=== PATIENT | female | born 1970 | race Caucasian/White ===

== ENCOUNTER → 2016-11-01 | Outpatient (REF) | payer BC ==
[~2016-11-01] MED LIST: /DULO30CA; AMBI10TA; CALC500T49; THERGRAN; VITA-113; VITA100027; XANA1TAB2
[2016-11-01 11:54] LABS: CONTROL LINE HCG INT CTR LINE PRESENT
[2016-11-01 11:55] LABS: BASO % 0.5 % (0.0-1.0); EOS # 0.1 K/mm3 (0.0-0.50); EOS % 2.7 % (0.0-3.0); LARGE UNSTAINED CELL # 0.1 K/mm3 (0.0-0.4); LARGE UNSTAINED CELL % 1.8 % (0.0-4.0); LYMPH # 1.1 K/mm3 (1.5-4.5); LYMPH % 22.4 % (24.0-44.0); MEAN CORPUSCULAR HEMOGLOBIN 18.5 pg (27.0-33.0); MEAN CORPUSCULAR HGB CONC 26.3 g/dl (32.0-36.5); MEAN CORPUSCULAR VOLUME 70.4 fl (80.0-96.0); MONO # 0.3 K/mm3 (0.0-0.8); MONO % 6.7 % (0.0-5.0); NEUTROPHILS # 3.1 K/mm3 (1.8-7.7); NEUTROPHILS % 65.9 % (36.0-66.0); PLATELET COUNT, AUTOMATED 460 k/mm3 (150-450); RED CELL DISTRIBUTION WIDTH 17.4 % (11.5-14.5); WHITE BLOOD COUNT 4.7 K/mm3 (4.0-10.0)
[2016-11-01 11:57] LABS: ANION GAP 8 MEQ/L (8-16); BLOOD UREA NITROGEN 13 MG/DL (7-18); CALCIUM LEVEL 8.5 MG/DL (8.5-10.1); CARBON DIOXIDE LEVEL 24 MEQ/L (21-32); CHLORIDE LEVEL 105 MEQ/L (98-107); CREATININE FOR GFR 0.77 MG/DL (0.55-1.02); GLOMERULAR FILTRATION RATE > 60.0 (>58); GLUCOSE, FASTING 89 MG/DL (70-105); SODIUM LEVEL 137 MEQ/L (136-145)
[2016-11-01 12:03] LABS: ADD MORPHOLOGY? YES
[2016-11-01 13:12] LABS: ANISOCYTOSIS 2+; HYPOCHROMASIA 3+; MICROCYTOSIS 2+; POIKILOCYTOSIS 1+
== END ==
LOC: M LABDRAWC 11:16
PROVIDERS: ATTEND Surgery
DX: T50.5X5A Adverse effect of appetite depressants, initial encounter (principal)

== ENCOUNTER → 2016-12-14 | Outpatient (REF) | payer BC ==
[2016-12-14 17:59] LABS: ANION GAP 9 MEQ/L (8-16); BLOOD UREA NITROGEN 9 MG/DL (7-18); CALCIUM LEVEL 8.8 MG/DL (8.5-10.1); CARBON DIOXIDE LEVEL 26 MEQ/L (21-32); CHLORIDE LEVEL 105 MEQ/L (98-107); CREATININE FOR GFR 0.82 MG/DL (0.55-1.02); GLOMERULAR FILTRATION RATE > 60.0 (>58); GLUCOSE, FASTING 88 MG/DL (70-105); POTASSIUM SERUM 3.7 MEQ/L (3.5-5.1); SODIUM LEVEL 140 MEQ/L (136-145)
== END ==
LOC: M LABDRAWC 16:20
PROVIDERS: ATTEND Physician Assistant
DX: Z01.818 Encounter for other preprocedural examination (principal); E11.9 Type 2 diabetes mellitus without complications

== ENCOUNTER → 2017-10-17 | Outpatient (REF) | payer BC ==
[2017-10-17 12:15] LABS: TOTAL 25(OH) VITAMIN D 14.6 NG/ML (30.0-100.0)
[2017-10-17 12:16] LABS: VITAMIN B12 LEVEL 209 PG/ML
[2017-10-17 12:17] LABS: FOLATE 5.1 NG/ML
[2017-10-17 12:18] LABS: ALBUMIN 3.7 GM/DL (3.2-5.2)
[2017-10-17 12:18] LABS: FERRITIN 1 NG/ML (8-252)
[2017-10-20 00:07] LABS: VITAMIN B1 LEVEL WHOLE BLOOD 92.7 nmol/L (66.5-200.0)
== END ==
LOC: M LABDRAWC 11:36
DX: Z98.84 Bariatric surgery status (principal)
CPT/HCPCS: 82040

== ENCOUNTER → 2018-02-15 | Outpatient (REF) | payer BC ==
[2018-02-16 11:55] LABS: IRON (FE) 19 UG/DL (50-170); PERCENT SATURATION 4.9 % (13.2-45.0); TOTAL IRON BINDING CAPACITY 391 UG/DL (250-450)
[2018-02-16 12:18] LABS: HEMATOCRIT 36.7 % (36.0-47.0); HEMOGLOBIN 10.6 g/dl (12.0-15.5); MEAN CORPUSCULAR HEMOGLOBIN 24.4 pg (27.0-33.0); MEAN CORPUSCULAR HGB CONC 28.9 g/dl (32.0-36.5); MEAN CORPUSCULAR VOLUME 84.6 fl (80.0-96.0); PLATELET COUNT, AUTOMATED 486 10^3/uL (150-450); RED BLOOD COUNT 4.34 10^6/uL (4.00-5.40); RED CELL DISTRIBUTION WIDTH 15.9 % (11.5-14.5); WHITE BLOOD COUNT 6.4 10^3/uL (4.0-10.0)
== END ==
LOC: M SFHCCLAY 15:58
DX: D50.8 Other iron deficiency anemias (principal)
CPT/HCPCS: 83550

== ENCOUNTER → 2019-06-06 | Outpatient (REF) | payer BC ==
[~2019-06-06] MED LIST changes: -/DULO30CA; +CYMB1CAP5
[2019-06-06 19:02] LABS: HEMATOCRIT 42.4 % (36.0-47.0); HEMOGLOBIN 14.2 g/dl (12.0-15.5); MEAN CORPUSCULAR HEMOGLOBIN 32.6 pg (27.0-33.0); MEAN CORPUSCULAR HGB CONC 33.5 g/dl (32.0-36.5); MEAN CORPUSCULAR VOLUME 97.2 fl (80.0-96.0); PLATELET COUNT, AUTOMATED 259 10^3/uL (150-450); RED BLOOD COUNT 4.36 10^6/uL (4.00-5.40); WHITE BLOOD COUNT 5.5 10^3/uL (4.0-10.0)
== END ==
LOC: M SFHCCLAY 10:30
PROVIDERS: ATTEND Family Medicine
DX: Z98.84 Bariatric surgery status (principal); K27.9 Peptic ulcer, site unspecified, unspecified as acute or chronic, without hemorrhage or perforation

== ENCOUNTER → 2019-06-08 | Outpatient (REF) | payer BC | LOC: M SFHCCLAY 11:18 | PROVIDERS: ATTEND Family Medicine | DX: Z98.84 Bariatric surgery status (principal) ==

== ENCOUNTER → 2019-09-05 | Outpatient (REF) | payer BC ==
[2019-09-05 12:36] LABS: ALBUMIN 3.9 GM/DL (3.2-5.2); ALT/SGPT 59 U/L (12-78); BILIRUBIN,DIRECT 0.1 MG/DL (0.0-0.2); BILIRUBIN,TOTAL 0.5 MG/DL (0.2-1.0); BLOOD UREA NITROGEN 17 MG/DL (7-18); CALCIUM LEVEL 9.1 MG/DL (8.5-10.1); CARBON DIOXIDE LEVEL 26 MEQ/L (21-32); CHLORIDE LEVEL 108 MEQ/L (98-107); CREATININE FOR GFR 0.94 MG/DL (0.55-1.30); FERRITIN 6 NG/ML (8-252); FOLATE > 24.0 NG/ML (>5.4); GLOMERULAR FILTRATION RATE > 60.0 (>58); GLUCOSE, FASTING 98 MG/DL (70-100); POTASSIUM SERUM 4.3 MEQ/L (3.5-5.1); SODIUM LEVEL 140 MEQ/L (136-145); TOTAL 25(OH) VITAMIN D 93.3 NG/ML (30.0-100.0); TOTAL PROTEIN 6.9 GM/DL (6.4-8.2); TRIGLYCERIDES LEVEL 115 MG/DL (<150); VITAMIN B12 LEVEL > 2000 PG/ML (247-911)
== END ==
LOC: M LABDRAWC 11:14 → M LAB REF 11:14
PROVIDERS: ATTEND Surgery
DX: Z98.84 Bariatric surgery status (principal)

== ENCOUNTER → 2019-09-19 | Outpatient (REF) | payer BC | LOC: M LAB REF 15:16 | PROVIDERS: ATTEND Orthopaedic Surgery Hand Surgery | DX: L72.9 Follicular cyst of the skin and subcutaneous tissue, unspecified (principal) ==

== ENCOUNTER → 2019-12-19 | Outpatient (CLI) | payer BC ==
--- NOTE | 2019-12-19 15:08 | REP ---
Clinical: Trauma. Technique: Frontal view of the chest with four views of the right hemithorax. Findings: Frontal view of the chest demonstrates no acute cardiopulmonary process. A very subtle nondisplaced fracture involving the anterolateral aspect of the right eighth rib cannot be excluded. Remainder examination appears normal. Impression: Cannot definitively exclude nondisplaced right eighth rib fracture. Electronically Signed by Marshall Quispe MD 12/19/2019 03:00 P
== END ==
LOC: M CLY 10:24
PROVIDERS: ATTEND Family Medicine
DX: R07.81 Pleurodynia (principal)

== ENCOUNTER → 2020-09-09 | Outpatient (CLI) | payer BC ==
--- NOTE | 2020-09-09 14:11 | REP ---
INDICATION: LOW BACK PAIN WITH SCIATICA. Acute right-sided low back pain with right-sided sciatica. COMPARISON: None. TECHNIQUE: Sagittal and axial T1 and T2-weighted scans are acquired in the usual fashion with and without fat saturation. Sequences include spin echo, turbo spin-echo, and STIR imaging sequences. FINDINGS: Lumbar vertebral body heights are preserved. Alignment is normal. There is no evidence of spondylolysis or spondylolisthesis. Pedicles and posterior elements are intact. No extra vertebral abnormality is observed. Tip of the conus medullaris is normal in position and appearance at L1. There is central disc bulging at the T11-12 disc. This disc shows narrowing in height and anterior osteophytes are seen formed at this level. The T12-L1 disc level shows minimal central disc bulging. At L1-L2, axial and sagittal images show no significant abnormality. At L2-3, there is mild degenerative disc narrowing. Minimal diffuse disc bulging is present. No foraminal narrowing or spinal stenosis is seen. At L3-4, there is a broad-based left lateral disc bulge with a annulus tear. This produces left neural foraminal narrowing. Mild diffuse disc bulging is present. There is mild ligamentum flavum and facet hypertrophy at L3-4. At L4-L5, there is a small central disc bulge. This effaces the ventral subarachnoid space. No spinal stenosis or foraminal narrowing is seen. At L5-S1, there is a right posterior disc extrusion with cranial migration of the disc extrusion along the posterior cortex of L5 nearly to its upper margin. There is right ventral lateral thecal sac compression and the right S1 root is compressed and displaced dorsally. The disc protrusion measures 12 x 7 x 16 mm in right to left by anteroposterior by craniocaudal dimension respectively. The there is minimal facet hypertrophy at L5-S1. Exam is otherwise unremarkable. IMPRESSION: 1. There is a large right posterior L5-S1 disc protrusion with cranial migration and extension. Right S1 nerve root compression and thecal sac compression. 2. There is a left lateral disc bulge with and annulus tear at L3-4 producing left-sided neural foraminal narrowing at this level. <Electronically signed by Mathieu Francisco > 09/09/20 [id number]
== END ==
LOC: M RAD 12:44
PROVIDERS: ATTEND Family Medicine
DX: M51.27 Other intervertebral disc displacement, lumbosacral region (principal); M51.26 Other intervertebral disc displacement, lumbar region; M54.41 Lumbago with sciatica, right side

== ENCOUNTER → 2020-09-18 | Outpatient (REF) | payer BC ==
[2020-09-18 16:16] LABS: APPEARANCE, URINE CLEAR (CLEAR); BACTERIA, URINE AUTO 1+ (NEGATIVE); BILIRUBIN, URINE AUTO NEGATIVE (NEGATIVE); BLOOD, URINE BLOOD NEGATIVE (NEGATIVE); COLOR, URINE STRAW (YELLOW); GLUCOSE, URINE (UA) AUTO NEGATIVE (NEGATIVE); KETONE, URINE AUTO NEGATIVE (NEGATIVE); LEUKOCYTE ESTERASE, URINE AUTO NEGATIVE (NEGATIVE); MUCUS, URINE SMALL (NEGATIVE); NITRITE, URINE AUTO NEGATIVE (NEGATIVE); PROTEIN, URINE AUTO NEGATIVE (NEGATIVE); RBC, URINE AUTO 0 /HPF (0-3); SPECIFIC GRAVITY URINE AUTO 1.004 (1.002-1.035); SQUAMOUS EPITHELIAL CELL UR AU 3 /HPF (0-6); UROBILINOGEN, URINE AUTO 0.2 mg/dL (0.0-2.0); WBC, URINE AUTO 0 /HPF (0-3)
[2020-09-18 16:19] LABS: BASO # 0.1 10^3/uL (0.0-0.2); BASO % 0.7 % (0.0-1.0); EOS # 0.2 10^3/uL (0.0-0.5); EOS % 2.8 % (0.0-3.0); HEMATOCRIT 42.1 % (36.0-47.0); HEMOGLOBIN 13.4 g/dl (12.0-15.5); LYMPH # 1.5 10^3/uL (1.5-5.0); LYMPH % 21.3 % (24.0-44.0); MEAN CORPUSCULAR HEMOGLOBIN 30.7 pg (27.0-33.0); MEAN CORPUSCULAR HGB CONC 31.8 g/dl (32.0-36.5); MEAN CORPUSCULAR VOLUME 96.3 fl (80.0-96.0); MONO # 0.5 10^3/uL (0.0-0.8); MONO % 7.5 % (2.0-8.0); NEUTROPHILS # 4.9 10^3/uL (1.5-8.5); NEUTROPHILS % 67.3 % (36.0-66.0); PLATELET COUNT, AUTOMATED 283 10^3/uL (150-450); RED BLOOD COUNT 4.37 10^6/uL (4.00-5.40); WHITE BLOOD COUNT 7.2 10^3/uL (4.0-10.0)
[2020-09-18 16:26] LABS: INR 0.94; PROTHROMBIN TIME 12.8 SECONDS (12.5-14.3)
[2020-09-18 16:27] LABS: PARTIAL THROMBOPLASTIN TIME 32.1 SECONDS (24.2-38.5)
[2020-09-18 16:36] LABS: ALBUMIN 4.1 GM/DL (3.2-5.2); ALT/SGPT 32 U/L (12-78); BILIRUBIN,TOTAL 0.2 MG/DL (0.2-1.0); BLOOD UREA NITROGEN 11 MG/DL (7-18); CARBON DIOXIDE LEVEL 28 MEQ/L (21-32); CHLORIDE LEVEL 109 MEQ/L (98-107); CREATININE FOR GFR 0.77 MG/DL (0.55-1.30); GLOMERULAR FILTRATION RATE > 60.0 (>58); GLUCOSE, FASTING 96 MG/DL (70-100); SODIUM LEVEL 141 MEQ/L (136-145); TOTAL PROTEIN 6.9 GM/DL (6.4-8.2)
[2020-09-19 07:22] LABS: FREE T4 0.89 NG/DL (0.76-1.46)
== END ==
LOC: M SFHCCLAY 13:21
PROVIDERS: ATTEND Family Medicine
DX: M51.26 Other intervertebral disc displacement, lumbar region (principal); Z01.818 Encounter for other preprocedural examination

== ENCOUNTER 2020-10-03 12:05 | Emergency (ER) | payer BC ==
[~2020-10-03] VITALS: Ht 154.9 cm; Wt 65.2 kg
[2020-10-03] MEDS ORDERED: ARIP1TAB6 (12:15)
[2020-10-03] MEDS ORDERED: ESCITALOPRAM (12:15)
[2020-10-03] MEDS ORDERED: BUPR300T92 (12:15)
[2020-10-03] MEDS ORDERED: OXYC1TAB15 (12:15)
--- NOTE | 2020-10-03 13:23 | REP ---
INDICATION: pain, swelling. COMPARISON: None. TECHNIQUE: Duplex deep vein ultrasound of the right lower extremity. FINDINGS: The deep veins demonstrate normal compression, normal Doppler color flow and normal Doppler waveforms with respiration augmentation at multiple levels from the popliteal vein to the common femoral vein. IMPRESSION: There is no evidence of deep vein thrombus in the right lower extremity. The normal size lymph node is incidentally noted in the right inguinal area. <Electronically signed by Griffin Chin > 10/03/20 [id number]
[2020-10-03 14:22] VITALS: BP 133/75
== END 2020-10-03 14:24 | disposition home or self-care (01) ==
LOC: M ED 12:05
DX: I83.811 Varicose veins of right lower extremity with pain (principal); R22.41 Localized swelling, mass and lump, right lower limb; M43.20 Fusion of spine, site unspecified; Z79.891 Long term (current) use of opiate analgesic; Z79.899 Other long term (current) drug therapy

== ENCOUNTER → 2021-04-16 | Outpatient (REF) | payer BC ==
[~2021-04-16] MED LIST changes: +ARIP1TAB6; +BUPR300T92; +ESCITALOPRAM; +OXYC7.5T3
[2021-04-16 11:50] LABS: HEMOGLOBIN A1c 5.3 %
[2021-04-16 11:54] LABS: ALBUMIN 3.6 GM/DL (3.2-5.2); ALT/SGPT 23 U/L (12-78); BILIRUBIN,TOTAL 0.3 MG/DL (0.2-1.0); BLOOD UREA NITROGEN 14 MG/DL (7-18); CARBON DIOXIDE LEVEL 28 MEQ/L (21-32); CHLORIDE LEVEL 111 MEQ/L (98-107); CREATININE FOR GFR 0.97 MG/DL (0.55-1.30); FREE T4 0.87 NG/DL (0.76-1.46); GLOMERULAR FILTRATION RATE > 60.0 (>58); GLUCOSE, FASTING 89 MG/DL (70-100); POTASSIUM SERUM 4.2 MEQ/L (3.5-5.1); SODIUM LEVEL 140 MEQ/L (136-145); TOTAL PROTEIN 6.6 GM/DL (6.4-8.2)
[2021-04-16 11:55] LABS: VITAMIN B12 LEVEL 398 PG/ML (247-911)
== END ==
LOC: M SFHCCLAY 08:00
PROVIDERS: ATTEND Family Medicine
DX: Z23 Encounter for immunization (principal); F33.0 Major depressive disorder, recurrent, mild; F41.9 Anxiety disorder, unspecified; Z98.84 Bariatric surgery status; D50.9 Iron deficiency anemia, unspecified

== ENCOUNTER → 2021-12-26 | Outpatient (CLI) | payer BC ==
[~2021-12-26] MED LIST changes: +PROHANCE 279.3MG/ML 15ML VIAL As Ordered ONE
== END ==
LOC: M RAD 08:31
PROVIDERS: ATTEND Nurse Practitioner Family
DX: M96.1 Postlaminectomy syndrome, not elsewhere classified (principal)

== ENCOUNTER → 2022-02-17 | Outpatient (REF) | payer BC ==
[~2022-02-17] MED LIST changes: -PROHANCE 279.3MG/ML 15ML VIAL As Ordered ONE
[2022-02-17 12:04] LABS: HEMATOCRIT 39.3 % (36.0-47.0); HEMOGLOBIN 12.1 g/dl (12.0-15.5); MEAN CORPUSCULAR HEMOGLOBIN 27.9 pg (27.0-33.0); MEAN CORPUSCULAR HGB CONC 30.8 g/dl (32.0-36.5); MEAN CORPUSCULAR VOLUME 90.8 fl (80.0-96.0); PLATELET COUNT, AUTOMATED 249 10^3/uL (150-450); RED BLOOD COUNT 4.33 10^6/uL (4.00-5.40); WHITE BLOOD COUNT 3.6 10^3/uL (4.0-10.0)
[2022-02-17 13:12] LABS: ALBUMIN 3.8 GM/DL (3.2-5.2); ALT/SGPT 21 U/L (12-78); BILIRUBIN,TOTAL 0.3 MG/DL (0.2-1.0); BLOOD UREA NITROGEN 13 MG/DL (7-18); CALCIUM LEVEL 9.2 MG/DL (8.5-10.1); CARBON DIOXIDE LEVEL 24 MEQ/L (21-32); CHLORIDE LEVEL 109 MEQ/L (98-107); CREATININE FOR GFR 0.91 MG/DL (0.55-1.30); FREE T4 0.87 NG/DL (0.76-1.46); GLOMERULAR FILTRATION RATE > 60.0 (>58); GLUCOSE, FASTING 108 MG/DL (70-100); IRON (FE) 44 UG/DL (50-170); MAGNESIUM LEVEL 2.1 MG/DL (1.8-2.4); PERCENT SATURATION 11.3 % (13.2-45.0); POTASSIUM SERUM 3.8 MEQ/L (3.5-5.1); SODIUM LEVEL 138 MEQ/L (136-145); TOTAL IRON BINDING CAPACITY 388 UG/DL (250-450); TOTAL PROTEIN 6.6 GM/DL (6.4-8.2)
[2022-02-17 14:10] LABS: PTH INTACT 30.8 PG/ML (18.5-88.0); VITAMIN B12 LEVEL 270 PG/ML (247-911)
== END ==
LOC: M SFHCCLAY 08:14
PROVIDERS: ATTEND Family Medicine
DX: F33.0 Major depressive disorder, recurrent, mild (principal); Z98.84 Bariatric surgery status

== ENCOUNTER → 2022-11-03 | Outpatient (REF) | payer BC ==
[2022-11-03 18:08] LABS: HEMOGLOBIN 12.8 g/dl (12.0-15.5); MEAN CORPUSCULAR HEMOGLOBIN 27.2 pg (27.0-33.0); MEAN CORPUSCULAR HGB CONC 31.2 g/dl (32.0-36.5); PLATELET COUNT, AUTOMATED 364 10^3/uL (150-450); RED BLOOD COUNT 4.71 10^6/uL (4.00-5.40); WHITE BLOOD COUNT 6.7 10^3/uL (4.0-10.0)
[2022-11-03 18:38] LABS: VITAMIN B12 LEVEL 339 PG/ML (211-911)
[2022-11-03 18:39] LABS: ALBUMIN 4.2 G/DL (3.2-5.2); ALKALINE PHOSPHATASE 46 U/L (46-116); ALT/SGPT 16 U/L (7.0-40); AST/SGOT < 8 U/L (<34); BILIRUBIN,TOTAL 0.3 MG/DL (0.3-1.2); BLOOD UREA NITROGEN 10 MG/DL (9-23); CALCIUM LEVEL 9.6 MG/DL (8.5-10.1); CARBON DIOXIDE LEVEL 25 MMOL/L (20-31); CHLORIDE LEVEL 106 MMOL/L (98-107); CREATININE FOR GFR 0.86 MG/DL (0.55-1.30); GLOMERULAR FILTRATION RATE > 60.0 (>51); GLUCOSE, FASTING 99 MG/DL (60-100); IRON (FE) 26 UG/DL (50-170); MAGNESIUM LEVEL 1.8 MG/DL (1.8-2.4); PERCENT SATURATION 6.6 % (13.2-45.0); POTASSIUM SERUM 5.1 MMOL/L (3.5-5.1); SODIUM LEVEL 138 MMOL/L (136-145); TOTAL IRON BINDING CAPACITY 392 UG/DL (250-425); TOTAL PROTEIN 6.9 G/DL (5.7-8.2)
[2022-11-03 18:42] LABS: THYROID STIMULATING HORMONE 5.443 uIU/ML (0.55-4.78)
== END ==
LOC: M SFHCCLAY 11:21
PROVIDERS: ATTEND Family Medicine
DX: F33.1 Major depressive disorder, recurrent, moderate (principal); F41.1 Generalized anxiety disorder; Z98.84 Bariatric surgery status; E53.8 Deficiency of other specified B group vitamins

== ENCOUNTER → 2022-12-17 | Outpatient (REF) | payer BC ==
[2022-12-17 13:02] LABS: FREE T4 0.92 NG/DL (0.89-1.76); THYROID STIMULATING HORMONE 2.311 uIU/ML (0.55-4.78)
== END ==
LOC: M SFHCCLAY 08:35
PROVIDERS: ATTEND Family Medicine
DX: E03.9 Hypothyroidism, unspecified (principal)

== ENCOUNTER → 2023-01-26 | Outpatient (REF) | payer BC ==
[2023-01-27 23:11] LABS: ANA (HEP2) Positive (.); CYCLIC CITRULLINATED PEPTIDE 5 units (0-19)
== END ==
LOC: M SFHCCLAY 07:10
PROVIDERS: ATTEND Family Medicine
DX: M19.90 Unspecified osteoarthritis, unspecified site (principal); Z98.84 Bariatric surgery status

== ENCOUNTER → 2023-05-05 | Outpatient (CLI) | payer BC | LOC: M PLARAD 09:19 | PROVIDERS: ATTEND Pain Medicine Interventional Pain Medicine | DX: M47.812 Spondylosis without myelopathy or radiculopathy, cervical region (principal); M50.222 Other cervical disc displacement at C5-C6 level ==

== ENCOUNTER → 2023-05-10 | Outpatient (REF) | payer BC ==
[2023-05-10 12:16] LABS: IRON (FE) 28 UG/DL (50-170); PERCENT SATURATION 6.5 % (13.2-45.0); TOTAL IRON BINDING CAPACITY 429 UG/DL (250-425)
[2023-05-10 12:17] LABS: ALBUMIN 3.6 G/DL (3.2-5.2); ALKALINE PHOSPHATASE 46 U/L (46-116); ALT/SGPT 23 U/L (7.0-40); AST/SGOT 23 U/L (<34); BILIRUBIN,TOTAL 0.2 MG/DL (0.3-1.2); BLOOD UREA NITROGEN 13 MG/DL (9-23); CALCIUM LEVEL 9.1 MG/DL (8.5-10.1); CARBON DIOXIDE LEVEL 27 MMOL/L (20-31); CHLORIDE LEVEL 109 MMOL/L (98-107); CREATININE FOR GFR 0.82 MG/DL (0.55-1.30); GLOMERULAR FILTRATION RATE > 60.0 (>51); GLUCOSE, FASTING 100 MG/DL (60-100); POTASSIUM SERUM 4.1 MMOL/L (3.5-5.1); SODIUM LEVEL 142 MMOL/L (136-145); TOTAL PROTEIN 6.3 G/DL (5.7-8.2)
[2023-05-10 12:19] LABS: FREE T4 0.98 NG/DL (0.89-1.76); THYROID STIMULATING HORMONE 2.308 uIU/ML (0.55-4.78)
[2023-05-10 12:25] LABS: BASO % 0.7 % (0.0-1.0); EOS # 0.2 10^3/uL (0.0-0.5); EOS % 3.4 % (0.0-3.0); HEMATOCRIT 37.5 % (36.0-47.0); HEMOGLOBIN 11.4 g/dl (12.0-15.5); LYMPH # 1.7 10^3/uL (1.5-5.0); LYMPH % 37.6 % (24.0-44.0); MEAN CORPUSCULAR HEMOGLOBIN 25.2 pg (27.0-33.0); MEAN CORPUSCULAR HGB CONC 30.4 g/dl (32.0-36.5); MEAN CORPUSCULAR VOLUME 82.8 fl (80.0-96.0); MONO # 0.5 10^3/uL (0.0-0.8); MONO % 10.9 % (2.0-8.0); NEUTROPHILS # 2.1 10^3/uL (1.5-8.5); NEUTROPHILS % 46.9 % (36.0-66.0); PLATELET COUNT, AUTOMATED 304 10^3/uL (150-450); RED BLOOD COUNT 4.53 10^6/uL (4.00-5.40); WHITE BLOOD COUNT 4.4 10^3/uL (4.0-10.0)
[2023-05-10 12:45] LABS: HEMOGLOBIN A1c 5.4 % (4.0-6.0)
== END ==
LOC: M SFHCCLAY 07:27
PROVIDERS: ATTEND Family Medicine
DX: E03.9 Hypothyroidism, unspecified (principal); Z98.84 Bariatric surgery status

== ENCOUNTER → 2023-06-03 | Outpatient (REF) | payer BC ==
[2023-06-03 13:35] LABS: CHOLESTEROL RISK RATIO 2.5 (<5); HDL CHOLESTEROL 65.2 MG/DL (>40); LDL CHOLESTEROL 77.2 MG/DL (<100); NON-HDL-C 97.8 MG/DL
== END ==
LOC: M LABDRAWC 11:54
PROVIDERS: ATTEND Psychiatry & Neurology Psychiatry
DX: F33.1 Major depressive disorder, recurrent, moderate (principal); F41.1 Generalized anxiety disorder

== ENCOUNTER 2023-06-20 13:36 | Emergency (ER) | payer BC ==
[~2023-06-20] VITALS: Ht 152.4 cm; Wt 60.7 kg
[2023-06-20] MEDS ORDERED: KETOROLAC 30 MG/ML 1ML VIAL IV ONE (16:55)
[2023-06-20] MEDS ORDERED: NS 1,000 ML IV ONE (16:55)
[2023-06-20] MEDS ORDERED: ISOVUE-370 76% 100ML VIAL As Ordered ONE ×2 (17:30→17:44)
[2023-06-20 17:41] VITALS: BP 126/74; TEMP 99.1; O2SAT 99
[2023-06-20 17:50] LABS: BASO % 0.8 % (0.0-1.0); EOS # 0.2 10^3/uL (0.0-0.5); EOS % 4.9 % (0.0-3.0); HEMOGLOBIN 11.1 g/dl (12.0-15.5); LYMPH # 2.3 10^3/uL (1.5-5.0); LYMPH % 49.4 % (24.0-44.0); MEAN CORPUSCULAR HEMOGLOBIN 24.2 pg (27.0-33.0); MEAN CORPUSCULAR VOLUME 80.6 fl (80.0-96.0); MONO # 0.4 10^3/uL (0.0-0.8); MONO % 9.1 % (2.0-8.0); NEUTROPHILS # 1.7 10^3/uL (1.5-8.5); NEUTROPHILS % 35.4 % (36.0-66.0); PLATELET COUNT, AUTOMATED 309 10^3/uL (150-450); RED BLOOD COUNT 4.59 10^6/uL (4.00-5.40); WHITE BLOOD COUNT 4.7 10^3/uL (4.0-10.0)
[2023-06-20] MEDS ORDERED: NEUR300C PO (18:55)
== END 2023-06-20 19:04 | disposition home or self-care (01) ==
LOC: M ED 13:36
DX: G57.92 Unspecified mononeuropathy of left lower limb (principal); M50.30 Other cervical disc degeneration, unspecified cervical region; F41.9 Anxiety disorder, unspecified; F32.A Depression, unspecified; Z98.84 Bariatric surgery status; F17.200 Nicotine dependence, unspecified, uncomplicated; Z79.899 Other long term (current) drug therapy
CPT/HCPCS: 70450; 71275; 80047; 85025; 96361; 96374; 99284; J1885; Q9967

== ENCOUNTER 2023-08-22 06:42 | Day surgery (SDC) | payer BC ==
[~2023-08-22] VITALS: Ht 152.4 cm; Wt 62.1 kg
[~2023-08-22 06:42] MED LIST changes: -ARIP1TAB6; +ARIP1TAB6 PO; +B-12100010 PO; +BUPR-69 PO; +CALCTAB89 PO; +LEVO25TA5 PO; +NEUR300C PO; +THERTAB52 PO; +TOPI-21 PO; +VENL75CA47 PO
[2023-08-22] MEDS ORDERED: SIMETHICONE 40MG/0.6ML DROPS 30ML As Ordered ONE (06:43)
[2023-08-22] MEDS: NS 1,000 ML IV ONE (07:11)
[2023-08-22 08:41] VITALS: BP 134/82; O2SAT 97
== END 2023-08-22 08:40 | disposition home or self-care (01) ==
LOC: M OPP 06:42
PROVIDERS: ATTEND Internal Medicine Gastroenterology
DX: Z12.11 Encounter for screening for malignant neoplasm of colon (principal); D12.6 Benign neoplasm of colon, unspecified; K64.8 Other hemorrhoids; K64.4 Residual hemorrhoidal skin tags; K57.30 Diverticulosis of large intestine without perforation or abscess without bleeding; D50.9 Iron deficiency anemia, unspecified; Z98.84 Bariatric surgery status; Z79.890 Hormone replacement therapy; Z79.899 Other long term (current) drug therapy

== ENCOUNTER → 2023-12-07 | Outpatient (REF) | payer BC ==
[~2023-12-07] MED LIST changes: +BUPR-597; -BUPR300T92
[2023-12-07 13:43] LABS: HEMATOCRIT 35.9 % (36.0-47.0); HEMOGLOBIN 10.8 g/dl (12.0-15.5); MEAN CORPUSCULAR HEMOGLOBIN 25.2 pg (27.0-33.0); MEAN CORPUSCULAR HGB CONC 30.1 g/dl (32.0-36.5); MEAN CORPUSCULAR VOLUME 83.9 fl (80.0-96.0); PLATELET COUNT, AUTOMATED 327 10^3/uL (150-450); RED BLOOD COUNT 4.28 10^6/uL (4.00-5.40); WHITE BLOOD COUNT 4.2 10^3/uL (4.0-10.0)
[2023-12-07 14:11] LABS: IRON (FE) 30 UG/DL (50-170)
[2023-12-07 14:13] LABS: FREE T4 0.77 NG/DL (0.89-1.76); PERCENT SATURATION 6.7 % (13.2-45.0); THYROID STIMULATING HORMONE 3.267 uIU/ML (0.55-4.78); TOTAL IRON BINDING CAPACITY 449 UG/DL (250-425)
[2023-12-07 14:14] LABS: VITAMIN B12 LEVEL 363 PG/ML (211-911)
[2023-12-07 14:15] LABS: ALBUMIN 3.5 G/DL (3.2-5.2); ALKALINE PHOSPHATASE 65 U/L (46-116); ALT/SGPT 19 U/L (7.0-40); AST/SGOT 22 U/L (<34); BILIRUBIN,TOTAL 0.3 MG/DL (0.3-1.2); BLOOD UREA NITROGEN 15 MG/DL (9-23); CALCIUM LEVEL 8.9 MG/DL (8.5-10.1); CARBON DIOXIDE LEVEL 29 MMOL/L (20-31); CHLORIDE LEVEL 107 MMOL/L (98-107); CHOLESTEROL LEVEL 151 MG/DL (<200); CHOLESTEROL RISK RATIO 2.14 (<5); GLOMERULAR FILTRATION RATE > 60.0 (>51); GLUCOSE, FASTING 95 MG/DL (60-100); HDL CHOLESTEROL 70.3 MG/DL (>40); LDL CHOLESTEROL 63.9 MG/DL (<100); NON-HDL-C 80.7 MG/DL; POTASSIUM SERUM 4.7 MMOL/L (3.5-5.1); PTH INTACT 45.1 PG/ML (18.5-88.0); SODIUM LEVEL 140 MMOL/L (136-145); TOTAL PROTEIN 6.3 G/DL (5.7-8.2); TRIGLYCERIDES LEVEL 84 MG/DL (<150)
== END ==
LOC: M SFHCCLAY 07:29
PROVIDERS: ATTEND Family Medicine
DX: F33.1 Major depressive disorder, recurrent, moderate (principal); E03.9 Hypothyroidism, unspecified; D50.9 Iron deficiency anemia, unspecified; E53.8 Deficiency of other specified B group vitamins; Z98.84 Bariatric surgery status

== ENCOUNTER → 2024-05-08 | Outpatient (REF) | payer BC ==
[2024-05-08 11:42] LABS: HEMATOCRIT 37.9 % (36.0-47.0); HEMOGLOBIN 11.4 g/dl (12.0-15.5); MEAN CORPUSCULAR HEMOGLOBIN 25.3 pg (27.0-33.0); MEAN CORPUSCULAR HGB CONC 30.1 g/dl (32.0-36.5); MEAN CORPUSCULAR VOLUME 84.2 fl (80.0-96.0); PLATELET COUNT, AUTOMATED 329 10^3/uL (150-450); WHITE BLOOD COUNT 5.1 10^3/uL (4.0-10.0)
[2024-05-08 12:17] LABS: FREE T4 1.23 NG/DL (0.89-1.76); PERCENT SATURATION 4.2 % (13.2-45.0)
[2024-05-08 12:18] LABS: THYROID STIMULATING HORMONE 2.628 uIU/ML (0.55-4.78)
[2024-05-08 12:20] LABS: FREE T3 3.2 PG/ML (2.3-4.2)
== END ==
LOC: M SFHCCLAY 08:58
PROVIDERS: ATTEND Family Medicine
DX: D50.9 Iron deficiency anemia, unspecified (principal); E03.9 Hypothyroidism, unspecified

== ENCOUNTER 2024-07-02 11:45 | Inpatient (IN) | payer BC ==
[~2024-07-02] VITALS: Ht 152.4 cm; Wt 63.3 kg
[2024-07-02 12:40] LABS: HEMATOCRIT 38.7 % (36.0-47.0); MEAN CORPUSCULAR HEMOGLOBIN 26.7 pg (27.0-33.0); PLATELET COUNT, AUTOMATED 301 10^3/uL (150-450); WHITE BLOOD COUNT 4.8 10^3/uL (4.0-10.0)
[2024-07-02 13:14] LABS: ETHYL ALCOHOL (ETHANOL) 0.005 % (0.000-0.010)
[2024-07-02 13:15] LABS: ALBUMIN 3.9 G/DL (3.2-5.2); ALKALINE PHOSPHATASE 51 U/L (35-104); ALT/SGPT 17 U/L (7.0-40); AST/SGOT 17 U/L (<34); BILIRUBIN,DIRECT < 0.1 MG/DL (<0.4); BILIRUBIN,TOTAL 0.2 MG/DL (0.3-1.2); BLOOD UREA NITROGEN 16 MG/DL (9-23); CALCIUM LEVEL 9.8 MG/DL (8.5-10.1); CARBON DIOXIDE LEVEL 26 MMOL/L (20-31); CHLORIDE LEVEL 110 MMOL/L (98-107); CREATININE FOR GFR 0.83 MG/DL (0.55-1.30); GLOMERULAR FILTRATION RATE > 60.0 (>51); GLUCOSE, FASTING 109 MG/DL (60-100); POTASSIUM SERUM 4.3 MMOL/L (3.5-5.1); SALICYLATE LEVEL < 3.0 MG/DL (<30); SODIUM LEVEL 145 MMOL/L (136-145); TOTAL PROTEIN 6.9 G/DL (5.7-8.2)
[2024-07-02 13:18] LABS: THYROID STIMULATING HORMONE 2.938 uIU/ML (0.55-4.78)
[2024-07-02 14:28] LABS: AMPHETAMINES LEVEL URINE NEGATIVE (NEGATIVE); BARBITURATES URINE NEGATIVE (NEGATIVE); BENZODIAZEPINES URINE NEGATIVE (NEGATIVE); COCAINE METABOLITE URINE NEGATIVE (NEGATIVE); METHADONE URINE NEGATIVE (NEGATIVE)
[2024-07-02 14:29] LABS: CANNABINOIDS URINE NEGATIVE (NEGATIVE); OPIATES URINE NEGATIVE (NEGATIVE); PHENCYCLIDINE URINE NEGATIVE (NEGATIVE)
[2024-07-02] MEDS ORDERED: MOM 30ML SUSPENSION UDC PO PRN (16:05)
[2024-07-02] MEDS ORDERED: MAALOX 30 ML SUSP *UDC PO PRN (16:05)
[2024-07-02] MEDS ORDERED: traZODone 50 MG TAB PO PRN (16:05)
[2024-07-02] MEDS ORDERED: LORA1TAB23 PO (16:37)
[2024-07-02] MEDS ORDERED: BRIN1TAB PO (16:37)
[2024-07-02] MEDS ORDERED: FERR324T2 PO (16:39)
[2024-07-02] MEDS ORDERED: VITA500C24 PO (16:39)
[2024-07-02] MEDS ORDERED: HOME MED LIST COMPLETE! XX SCH (16:40)
[2024-07-02 18:12] VITALS: BP 144/78; TEMP 98.2; O2SAT 97
[2024-07-02] MEDS: ACETAMINOPHEN 325 MG TAB PO PRN (19:24)
[2024-07-03] MEDS: IBUPROFEN 400MG TAB PO PRN (06:06)
[2024-07-03 06:23] VITALS: BP_SYST 120; BP_SYST 170; BP_DIAS 67; TEMP 97.9; O2SAT 98
[2024-07-03] MEDS: PARoxetine 10MG TABLET PO SCH (09:00)
[2024-07-03 10:30] VITALS: BP 120/67; TEMP 97.9; O2SAT 98
[2024-07-03] MEDS: TOPIRAMATE (TopAMAX) 25 MG TAB PO SCH (11:16)
[2024-07-03] MEDS: ASCORBIC ACID 500 MG TAB PO SCH (11:16)
[2024-07-03] MEDS: LORazepam 0.5 MG TAB PO PRN (11:17)
[2024-07-03 14:31] VITALS: BP 144/75; TEMP 97.6; O2SAT 100
[2024-07-03] MEDS: OLANZapine ORAL DISINTEGRATING TAB 5MG PO PRN (15:32)
[2024-07-04] MEDS: LEVOTHYROXINE 25MCG TABLET (0.025MG) PO SCH (06:09)
[2024-07-04 06:25] VITALS: BP 101/61; TEMP 97.6; O2SAT 97
[2024-07-04] MEDS: MULTIVITAMINS/MINERALS THERAP 1 TAB PO SCH (08:58)
[2024-07-04] MEDS: FERROUS SULFATE 325MG TAB PO SCH (08:59)
[2024-07-04 16:19] VITALS: BP 126/72; TEMP 98.1; O2SAT 100
[2024-07-05] MEDS: diphenhydrAMINE 25MG CAP PO PRN (04:08)
[2024-07-05 06:37] VITALS: BP 128/70; TEMP 97; O2SAT 98
[2024-07-05] MEDS ORDERED: PARO5TAB PO (13:54)
[2024-07-05] MEDS ORDERED: ABIL1TAB11 PO (13:54)
== END 2024-07-05 14:31 | disposition home or self-care (01) | DRG 754 ==
LOC: M ED 11:45 → M ED INP 16:04 → M PSY 17:59
PROVIDERS: ADMIT Psychiatry & Neurology Psychiatry; ATTEND Psychiatry & Neurology Psychiatry
DX: F32.A Depression, unspecified (principal); E03.9 Hypothyroidism, unspecified; F41.1 Generalized anxiety disorder; D50.9 Iron deficiency anemia, unspecified; F10.11 Alcohol abuse, in remission; F12.11 Cannabis abuse, in remission; Z79.890 Hormone replacement therapy; Z79.899 Other long term (current) drug therapy; Z98.84 Bariatric surgery status

== ENCOUNTER → 2024-07-11 | Outpatient (REF) | payer BC ==
[~2024-07-11] MED LIST changes: +ABIL1TAB11 PO; +BRIN1TAB PO; +FERR324T2 PO; +LORA1TAB23 PO; +PARO5TAB PO; +VITA500C24 PO
[2024-07-11 13:15] LABS: HEMOGLOBIN 11.9 g/dl (12.0-15.5); MEAN CORPUSCULAR HEMOGLOBIN 26.7 pg (27.0-33.0); MEAN CORPUSCULAR HGB CONC 30.5 g/dl (32.0-36.5); MEAN CORPUSCULAR VOLUME 87.6 fl (80.0-96.0); PLATELET COUNT, AUTOMATED 271 10^3/uL (150-450); RED BLOOD COUNT 4.45 10^6/uL (4.00-5.40); WHITE BLOOD COUNT 3.3 10^3/uL (4.0-10.0)
[2024-07-11 13:32] LABS: PERCENT SATURATION 6.2 % (13.2-45.0)
[2024-07-11 13:35] LABS: THYROID STIMULATING HORMONE 2.081 uIU/ML (0.55-4.78)
== END ==
LOC: M SFHCCLAY 08:39
PROVIDERS: ATTEND Physician Assistant
DX: D64.9 Anemia, unspecified (principal)

== ENCOUNTER → 2024-07-13 | Outpatient (REF) | payer BC | LOC: M SFHCCLAY 11:07 | PROVIDERS: ATTEND Physician Assistant | DX: D50.8 Other iron deficiency anemias (principal) ==

== ENCOUNTER → 2024-08-06 | Outpatient (REF) | payer BC ==
[2024-08-06 14:19] LABS: FERRITIN 214.4 NG/ML (7.3-270.7)
[2024-08-06 15:57] LABS: PERCENT SATURATION 31.3 % (13.2-45.0)
== END ==
LOC: M SFHCCLAY 07:08
PROVIDERS: ATTEND Physician Assistant
DX: D50.8 Other iron deficiency anemias (principal); R20.2 Paresthesia of skin

== ENCOUNTER → 2024-08-07 | Outpatient (REF) | payer BC ==
[2024-08-07 12:08] LABS: HEMATOCRIT 41.2 % (36.0-47.0); HEMOGLOBIN 12.9 g/dl (12.0-15.5); MEAN CORPUSCULAR HEMOGLOBIN 28.4 pg (27.0-33.0); MEAN CORPUSCULAR HGB CONC 31.3 g/dl (32.0-36.5); MEAN CORPUSCULAR VOLUME 90.7 fl (80.0-96.0); PLATELET COUNT, AUTOMATED 235 10^3/uL (150-450); RED BLOOD COUNT 4.54 10^6/uL (4.00-5.40); WHITE BLOOD COUNT 4.5 10^3/uL (4.0-10.0)
== END ==
LOC: M SFHCCLAY 09:54
PROVIDERS: ATTEND Physician Assistant
DX: D50.9 Iron deficiency anemia, unspecified (principal)

== ENCOUNTER → 2024-09-14 | Outpatient (REF) | payer BC ==
[2024-09-14 15:38] LABS: HEMATOCRIT 45.1 % (36.0-47.0); HEMOGLOBIN 14.6 g/dl (12.0-15.5); MEAN CORPUSCULAR HGB CONC 32.4 g/dl (32.0-36.5); MEAN CORPUSCULAR VOLUME 92.8 fl (80.0-96.0); PLATELET COUNT, AUTOMATED 234 10^3/uL (150-450); RED BLOOD COUNT 4.86 10^6/uL (4.00-5.40); WHITE BLOOD COUNT 5.4 10^3/uL (4.0-10.0)
[2024-09-14 16:03] LABS: PERCENT SATURATION 54.1 % (13.2-45.0)
[2024-09-14 16:05] LABS: FERRITIN 25.3 NG/ML (7.3-270.7)
== END ==
LOC: M SFHCCLAY 08:39
PROVIDERS: ATTEND Physician Assistant
DX: D50.8 Other iron deficiency anemias (principal)

== ENCOUNTER → 2025-04-09 | Outpatient (REF) | payer BC ==
[~2025-04-09] MED LIST changes: -BUPR-597; +BUPR-766
== END ==
LOC: M SFHCCLAY 15:26
PROVIDERS: ATTEND Physician Assistant
DX: Z53.9 Procedure and treatment not carried out, unspecified reason (principal)

== ENCOUNTER → 2025-04-10 | Outpatient (REF) | payer BC ==
[2025-04-10 15:14] LABS: ALT/SGPT 27.0 U/L (7.0-40); AST/SGOT 34.0 U/L (<34); CALCIUM LEVEL 9.1 MG/DL (8.5-10.1); CARBON DIOXIDE LEVEL 28.0 MMOL/L (20-31); CHLORIDE LEVEL 107.0 MMOL/L (98-107); CREATININE FOR GFR 1.1 MG/DL (0.55-1.30); GLOMERULAR FILTRATION RATE 60.5 (>51); POTASSIUM SERUM 4.3 MMOL/L (3.5-5.1); SODIUM LEVEL 141.0 MMOL/L (136-145)
[2025-04-11 23:12] LABS: SSA SJOGRENS A <1.0 NEG AI (<1.0 NEG); SSB SJOGRENS B <1.0 NEG AI (<1.0 NEG)
[2025-04-22 09:16] LABS: CARBONIC ANHYDRASE VI IgA ABS 1.4 EU/ml (<20.0); CARBONIC ANHYDRASE VI IgG ABS 2.40 EU/ml (<20.0); CARBONIC ANHYDRASE VI IgM ABS 6.0 EU/ml (<20.0); PAROTID SPECIFIC PROTEIN IgA 22.2 EU/ml (<20.0); PAROTID SPECIFIC PROTEIN IgG 1.4 EU/ml (<20.0); PAROTID SPECIFIC PROTEIN IgM 33.6 EU/ml (<20.0); SALIVARY PROTEIN 1 IgA 94.0 EU/ml (<20.0); SALIVARY PROTEIN 1 IgG 6.6 EU/ml (<20.0); SALIVARY PROTEIN 1 IgM 43.3 EU/ml (<20.0)
== END ==
LOC: M SFHCCLAY 06:52
PROVIDERS: ATTEND Physician Assistant
DX: R68.2 Dry mouth, unspecified (principal)

== ENCOUNTER → 2025-05-10 | Outpatient (REF) | payer BC ==
[2025-05-10 14:33] LABS: BASO # 0.1 10^3/uL (0.0-0.2); BASO % 1.0 % (0.0-1.0); EOS # 0.2 10^3/uL (0.0-0.5); EOS % 3.7 % (0.0-3.0); LYMPH # 1.6 10^3/uL (1.5-5.0); LYMPH % 30.4 % (24.0-44.0); MONO # 0.4 10^3/uL (0.0-0.8); MONO % 8.3 % (2.0-8.0); NEUTROPHILS # 2.9 10^3/uL (1.5-8.5); NEUTROPHILS % 56.2 % (36.0-66.0); PLATELET COUNT, AUTOMATED 265 10^3/uL (150-450)
[2025-05-10 14:42] LABS: ALT/SGPT 29.0 U/L (7.0-40); AST/SGOT 45.0 U/L (<34); CALCIUM LEVEL 9.1 MG/DL (8.5-10.1); CARBON DIOXIDE LEVEL 28.0 MMOL/L (20-31); CHLORIDE LEVEL 111.0 MMOL/L (98-107); CHOLESTEROL LEVEL 172.0 MG/DL (<200); CHOLESTEROL RISK RATIO 2.16 (<5); CREATININE FOR GFR 1.05 MG/DL (0.55-1.30); GLOMERULAR FILTRATION RATE 63.9 (>51); IRON (FE) 143.0 UG/DL (50-170); LDL CHOLESTEROL 79.7 MG/DL (<100); NON-HDL-C 92.5 MG/DL; PERCENT SATURATION 42.1 % (13.2-45.0); POTASSIUM SERUM 5.0 MMOL/L (3.5-5.1); SODIUM LEVEL 143.0 MMOL/L (136-145); TRIGLYCERIDES LEVEL 64.0 MG/DL (<150)
[2025-05-10 14:46] LABS: FREE T4 0.91 NG/DL (0.89-1.76)
== END ==
LOC: M SFHCCLAY 08:11
PROVIDERS: ATTEND Nurse Practitioner Family
DX: D50.9 Iron deficiency anemia, unspecified (principal); E03.9 Hypothyroidism, unspecified; E53.8 Deficiency of other specified B group vitamins; F33.0 Major depressive disorder, recurrent, mild; Z98.84 Bariatric surgery status; F41.1 Generalized anxiety disorder; R47.89 Other speech disturbances